=== PATIENT | female | born 1965 | race Asian ===

== ENCOUNTER 2020-07-22 13:40 | Outpatient (CLI) | payer OTHER | END 2020-07-22 21:14 | disposition home or self-care (01) | LOC: INF 13:40 | PROVIDERS: ATTEND Internal Medicine | DX: Z23 Encounter for immunization (principal) | CPT/HCPCS: 96372 ==

== ENCOUNTER 2020-08-18 14:16 | Outpatient (CLI) | payer OTHER | END 2020-08-18 21:30 | disposition home or self-care (01) | LOC: INF 14:16 | PROVIDERS: ATTEND Internal Medicine | DX: Z23 Encounter for immunization (principal) | CPT/HCPCS: 96372 ==